=== PATIENT | male | born 1955 | race Caucasian/White ===

== ENCOUNTER 2017-05-01 22:20 | Observation (INO) | payer OTHER, BC ==
[~2017-05-01] VITALS: Ht 177.8 cm; Wt 107.5 kg
[~2017-05-01 22:20] MED LIST: ASPI325EC; ATEN50; ATOR40TA PO; BENA10; GEMF600; ISOD40ER; LEVSOD200; METF500; MULVITB&C; NITRSPRAY; TOCO400
[2017-05-01 22:55] LABS: BASOPHILS ABSOLUTE AUTO 0.03 K/mm3 (0.00-0.23); BASOPHILS PERCENT AUTO 1 % (0-2); EOSINOPHILS ABSOLUTE AUTO 0.27 K/mm3 (0.00-0.68); EOSINOPHILS PERCENT AUTO 5 % (0-6); Hematocrit 23.4 % (37.0-53.0); Hemoglobin 7.3 g/dL (13.5-17.5); IMMATURE GRAN ABSOLUTE AUTO 0.03 K/mm3 (0.00-0.10); IMMATURE GRAN PERCENT AUTO 1 % (0-1); LYMPHOCYTES ABSOLUTE AUTO 1.89 K/mm3 (0.84-5.20); LYMPHOCYTES PERCENT AUTO 36 % (21-46); MONOCYTES ABSOLUTE AUTO 0.73 K/mm3 (0.16-1.47); MONOCYTES PERCENT AUTO 14 % (4-13); Mean Corpuscular HGB 29.2 pg (26.0-34.0); Mean Corpuscular HGB Conc 31.2 g/dL (31.5-36.5); Mean Corpuscular Volume 94 fL (80-100); Mean Platelet Volume 12.1 fL (9.1-12.4); NEUTROPHILS ABSOLUTE AUTO 2.28 K/mm3 (1.96-9.15); NEUTROPHILS PERCENT AUTO 44 % (41-73); NRBC ABSOLUTE 0.05 K/mm3 (0.00-0.02); Platelet Count 100 K/mm3 (150-400); RDW Coefficient Variation 15.9 % (11.7-14.2); RDW Standard Deviation 52.9 fL (35.1-46.3); White Blood Cell Count 5.23 K/mm3 (4.00-11.30)
[2017-05-01 23:15] LABS: Alanine Aminotransfer (ALT/SGP 42 U/L (12-78); Albumin, Blood 2.4 g/dL (3.4-5.0); Albumin/Globulin Ratio 0.7 (0.8-1.8); Alk Phos 84 U/L (50-136); Anion Gap 9 mmol/L (6-16); Aspartate Aminotrans (AST/SGOT 28 U/L (12-37); Bilirubin, Total 0.4 mg/dL (0.1-1.0); Blood Urea Nitrogen 14 mg/dL (8-24); Bun/Creatinine Ratio 18.7 (12.0-20.0); CO2, Blood 26 mmol/L (21-32); Calcium, Blood 8.3 mg/dL (8.5-10.1); Chloride, Blood 103 mmol/L (98-108); Creatinine, Blood 0.75 mg/dL (0.60-1.20); Globulin, Blood 3.6 g/dL (2.2-4.0); Glomerular Filtration Rate >60 (60-); Glucose, Blood 211 mg/dL (70-99); Potassium, Blood 3.9 mmol/L (3.5-5.5); Sodium, Blood 138 mmol/L (136-145); Troponin I <0.015 ng/mL (0.000-0.040)
[2017-05-01] MEDS ORDERED: JARDIANCE10 MG PO (23:37)
[2017-05-01] MEDS ORDERED: ASPI81CH PO (23:37)
[2017-05-01] MEDS ORDERED: Ferrous Sulfat324 MG PO (23:38)
[2017-05-01] MEDS ORDERED: HYDCHL25 PO (23:38)
[2017-05-01] MEDS ORDERED: INSULANPEN SC (23:39)
[2017-05-01] MEDS ORDERED: Acidophilus La100 GM PO (23:39)
[2017-05-01] MEDS ORDERED: LISI5 PO (23:39)
[2017-05-01] MEDS ORDERED: PANT40 PO (23:40)
[2017-05-01] MEDS ORDERED: LOPE2C PO (23:40)
[2017-05-01] MEDS ORDERED: PROP10 PO (23:41)
[2017-05-01] MEDS ORDERED: SPIR25 PO (23:41)
[2017-05-01] MEDS ORDERED: Novolog Fl100 UNIT/1 SC (23:42)
[2017-05-01] MEDS ORDERED: THYR60 PO (23:43)
[2017-05-02] MEDS ORDERED: OSTERA TABLET1 EACH PO (01:10)
[2017-05-02] MEDS ORDERED: OCUVITE ADULT1 EACH PO (01:11)
[2017-05-02] MEDS ORDERED: VIT1CAPS12 PO (01:11)
[2017-05-02] MEDS ORDERED: Hair, Skin & N1 EACH PO (01:29)
== END 2017-05-02 13:15 | disposition home or self-care (01) ==
LOC: ER 22:20 → PCU 22:21 → ER 23:49 → PCU 23:49
PROVIDERS: Emergency Medicine
DX: K64.8 Other hemorrhoids (principal); K92.2 Gastrointestinal hemorrhage, unspecified; D50.0 Iron deficiency anemia secondary to blood loss (chronic); E11.9 Type 2 diabetes mellitus without complications; I10 Essential (primary) hypertension; I25.10 Atherosclerotic heart disease of native coronary artery without angina pectoris; D69.6 Thrombocytopenia, unspecified; E03.9 Hypothyroidism, unspecified; K76.6 Portal hypertension; E78.5 Hyperlipidemia, unspecified; K21.9 Gastro-esophageal reflux disease without esophagitis; I25.2 Old myocardial infarction; Z79.4 Long term (current) use of insulin; Z95.1 Presence of aortocoronary bypass graft; Z90.49 Acquired absence of other specified parts of digestive tract; Z79.899 Other long term (current) drug therapy; Z66 Do not resuscitate; Z87.891 Personal history of nicotine dependence
CPT/HCPCS: 36415; 36430; 80053; 82947; 84484; 85025; 86850; 86900; 86901; 86920; 93005; 93010; 99285; G0378; J1815; J7030; P9016

== ENCOUNTER 2024-07-03 16:29 | Emergency (ER) | payer OTHER ==
[~2024-07-03] VITALS: Ht 175.3 cm; Wt 88.5 kg
[~2024-07-03 16:29] MED LIST changes: +ASPI81CH PO; +Acidophilus La100 GM PO; +Ferrous Sulfat324 MG PO; +HYDCHL25 PO; +Hair, Skin & N1 EACH PO; +INSULANPEN SC; +JARDIANCE10 MG PO; +LISI5 PO; +LOPE2C PO; +Novolog Fl100 UNIT/1 SC; +OCUVITE ADULT1 EACH PO; +OSTERA TABLET1 EACH PO; +PANT40 PO; +PROP10 PO; +SPIR25 PO; +THYR60 PO; +VIT1CAPS12 PO
[2024-07-03 16:33] VITALS: BP 145/79
== END 2024-07-03 18:39 | disposition home or self-care (01) ==
LOC: ER 16:29
DX: R18.8 Other ascites (principal); I10 Essential (primary) hypertension; E11.9 Type 2 diabetes mellitus without complications; K74.60 Unspecified cirrhosis of liver; I25.2 Old myocardial infarction; E03.9 Hypothyroidism, unspecified; Z79.4 Long term (current) use of insulin; Z79.899 Other long term (current) drug therapy; Z79.84 Long term (current) use of oral hypoglycemic drugs; Z87.891 Personal history of nicotine dependence
CPT/HCPCS: 76705; 99284-25